=== PATIENT | female | born 1940 | race Caucasian/White ===

== ENCOUNTER → 2016-04-16 | Outpatient (CLI) | payer MEDICARE, BC ==
[~2016-04-16] MED LIST: ASPI1TAB69 PO; ASPI81CH37 CHEW; ATEN25TA PO; CRAN400C PO; CYMB30CA PO; LEVO.075 PO; LIPI40TA PO; LYRI50CA PO; MULT1TAB21 PO; SYSTSOL9 EACH EYE; VITA100064 PO; VITACAP7 PO; ZOLO50TA PO
[2016-04-16 13:28] LABS: AUTOMATED NEUTROPHIL # 2.8 TH/MM3 (1.8-7.7); BASOPHIL % 0.5 % (0.0-2.0); EOSINOPHIL # 0.1 TH/MM3 (0-0.4); EOSINOPHIL % 2.9 % (0.0-4.0); HEMATOCRIT 41.8 % (35.0-46.0); HEMO FLAGS DIFF FINAL; LYMPHOCYTE # 1.3 TH/MM3 (1.0-4.8); MEAN CELL VOLUME 89.7 FL (80.0-100.0); MEAN CORPUSCULAR HEMOGLOBIN 29.4 PG (27.0-34.0); MEAN CORPUSCULAR HGB CONC 32.7 % (32.0-36.0); MONO % 6.7 % (0.0-8.0); NEUT % 60.9 % (16.0-70.0); PLATELET COUNT 189 TH/MM3 (150-450); RED BLOOD COUNT 4.66 MIL/MM3 (4.00-5.30); RED CELL DISTRIBUTION WIDTH 13.6 % (11.6-17.2); WHITE BLOOD COUNT 4.6 TH/MM3 (4.0-11.0)
[2016-04-16 13:51] LABS: ANION GAP 5 MEQ/L (5-15); AST (GOT) 23 U/L (15-37); BLOOD UREA NITROGEN 16 MG/DL (7-18); CHLORIDE 109 MEQ/L (98-107); GLOMERULAR FILTRATION RATE 66 ML/MIN (>89); GLUCOSE,FASTING 91 MG/DL (74-99); POTASSIUM 4.4 MEQ/L (3.5-5.1); SODIUM (NA) 143 MEQ/L (136-145)
[2016-04-16 14:03] LABS: ALKALINE PHOSPHATASE 63 U/L (45-117); ALT (GPT) 27 U/L (10-53); FERRITIN 54 NG/ML (8-252); HDL CHOLESTEROL 78.1 MG/DL (40.0-60.0); LDL CHOLESTEROL 90 MG/DL (0-99); TOTAL BILIRUBIN ADULT 0.6 MG/DL (0.2-1.0)
== END ==
LOC: PLAB 08:24
PROVIDERS: ATTEND Family Medicine
DX: E03.9 Hypothyroidism, unspecified (principal)
CPT/HCPCS: 36415; 80053; 80061; 82728; 84443; 85025

== ENCOUNTER 2016-08-19 11:20 | Day surgery (SDC) | payer MEDICARE, BC ==
[~2016-08-19 11:20] MED LIST changes: -ASPI81CH37 CHEW; -ATEN25TA PO; -CYMB30CA PO; -MULT1TAB21 PO; +PROPOFOL 200 MG/20 ML AMP IV ONE; -VITACAP7 PO
[2016-08-19] MEDS ORDERED: VANCOMYCIN 1000 MG/NS 250 ML IV SCH ×2 (11:45)
[2016-08-19] MEDS ORDERED: POVIDONE IODINE 5% (ANTISEPSIS KIT) 4 APPLICATIONS EACH NARE SCH (11:45)
[2016-08-19] MEDS ORDERED: ceFAZolin 2 GM PREMIX 50 ML IV SCH (11:45)
[2016-08-19] MEDS ORDERED: MUPIROCIN 2% OINT 1 APPLIC/GM SYR NASAL SCH (11:45)
[2016-08-19] MEDS ORDERED: CHLORHEXIDINE GLUCONATE 2 % 1 PACK (2 CLOTHS) TOPICAL SCH (11:45)
[2016-08-19] MEDS ORDERED: VITACAP7 PO (11:49)
[2016-08-19] MEDS ORDERED: CYMB30CA PO (11:49)
[2016-08-19] MEDS ORDERED: MULT1TAB21 PO (11:49)
[2016-08-19] MEDS ORDERED: ASPI81CH37 CHEW (11:49)
[2016-08-19] MEDS ORDERED: ATEN25TA PO (11:49)
[2016-08-19] MEDS ORDERED: SODIUM CHLORID 0.9% 500 ML IV PRN (12:00)
[2016-08-19] MEDS ORDERED: CHLORHEXIDINE GLUCONATE 2 % 1 PACK (2 CLOTHS) TOPICAL PRN (12:00)
[2016-08-19] MEDS ORDERED: LACTATED RINGER'S 1000 ML IV PRN (12:00)
[2016-08-19] MEDS ORDERED: INSULIN HUMAN REGULAR 1,000 UNITS/10 ML VIAL SQ PRN (12:00)
[2016-08-19] MEDS ORDERED: POVIDONE IODINE 5% (ANTISEPSIS KIT) 4 APPLICATIONS EACH NARE PRN (12:00)
[2016-08-19] MEDS ORDERED: METOPROLOL TARTRATE 25 MG TAB PO PRN (12:00)
--- NOTE | 2016-08-19 17:01 | EKG ---
Date Performed: 08/19/2016 Time Performed: 12:02:58 PTAGE: 76 years EKG: Sinus rhythm . Prolonged QT interval Left anterior fascicular block Septal T wave changes are nonspecific Borderli ne ECG PREVIOUS TRACING : 05/01/2015 10.23 No significant change from previous tracing noted. DOCTOR: Eleazar Rodrigues Interpretating Date/Time 08/19/2016 16:58:40
--- NOTE | 2016-08-20 10:40 | CF ---
cc: MAME MARCOS,BETSY Davison M.D. DATE OF 08/19/2016 PROCEDURE PERFORMED Transesophageal echocardiogram INDICATION Embolic stroke. REGISTERED NURSING PROFESSOR Dr. Betsy Mishra CONSENT A full informed consent was obtained prior to the procedure, the risks of , bleeding, perforation, aspiration, foreseen and unforeseen complications were reviewed. The patient fully appears to understand the risks. PROCEDURAL STATEMENT The patient was draped and prepped in the usual manner. Full CECILIA was performed. Anesthesia was given as per the Anesthesia Department. FINDINGS The aortic valve was trileaflet. The left atrial appendage was free of thrombus. The interatrial septum was intact. Bubble studies x2 were carried out with no evidence of [id number] shunting. There was no significant mitral regurgitation or tricuspid regurgitation. LV function was normal. septum was intact. Interatrial septum was intact. There was some mild thickening of the aortic wall, but no obvious significant plaque. CONCLUSIONS Negative CECILIA. Negative bubble studies x2. No obvious embolic source seen. PLAN Proceed with loop recorder placement. Betsy Mishra MD, FRCP,FACC SHWETA/TAYLOR /2:03 PM /10:36 AM MTDMore
--- NOTE | 2016-08-20 10:44 | MP ---
cc: MAME MARCOS M.D., HUMAYUN A. M.D. DATE OF SURGERY: 08/19/2016 PROCEDURE PERFORMED Loop recorder implantation. INDICATION Embolic stroke. PROCEDURAL STATEMENT The patient was draped and prepped in the usual manner. The left fourth intercostal space was anesthetized using lidocaine. Using a scalpel a small incision was made using the Pumodotronic device. A Reveal device was injected under the skin. CONCLUSION Successful placement of Reveal device with excellent pacing and sensing parameters with R-wave of 0.3. PLAN Will plan to discharge the patient later today. Betsy Mishra MD, FRCP,[facility] HAJ/TLL /2:05 PM /10:39 AM
== END 2016-08-19 15:00 | disposition home or self-care (01) ==
LOC: HDOC 11:20 → HDIC 11:20 → HDOC 15:00
PROVIDERS: ATTEND Internal Medicine Cardiovascular Disease
DX: R00.2 Palpitations (principal); I63.9 Cerebral infarction, unspecified; I47.1 Supraventricular tachycardia; I08.1 Rheumatic disorders of both mitral and tricuspid valves; I10 Essential (primary) hypertension; F41.9 Anxiety disorder, unspecified; E78.5 Hyperlipidemia, unspecified; E03.9 Hypothyroidism, unspecified; F32.9 Major depressive disorder, single episode, unspecified; Z79.82 Long term (current) use of aspirin
CPT/HCPCS: 33282; 93005; 93312; 93320; 93325; C1764

== ENCOUNTER → 2016-12-30 | Outpatient (CLI) | payer MEDICARE, BC ==
[~2016-12-30] MED LIST changes: -ASPI1TAB69 PO; +ASPI81CH37 CHEW; +ATEN25TA PO; +CYMB30CA PO; -LIPI40TA PO; -LYRI50CA PO; +MULT1TAB21 PO; -PROPOFOL 200 MG/20 ML AMP IV ONE; -SYSTSOL9 EACH EYE; +VITACAP7 PO; -ZOLO50TA PO
[2016-12-30 13:42] LABS: % SATURATION IRON PROFILE 22.6 % (20-50); IRON (FE) 78 MCG/DL (50-170); TOTAL IRON BINDING CAPACITY 346 MCG/DL (250-450)
[2016-12-30 13:48] LABS: ALBUMIN 3.6 GM/DL (3.4-5.0); ALT (GPT) 33 U/L (10-53); AST (GOT) 29 U/L (15-37); BICARBONATE 29.1 MEQ/L (21.0-32.0); BLOOD UREA NITROGEN 17 MG/DL (7-18); CALCIUM 8.8 MG/DL (8.5-10.1); CHLORIDE 109 MEQ/L (98-107); CHOLESTEROL 178 MG/DL (120-200); CREATININE 0.89 MG/DL (0.50-1.00); GLOMERULAR FILTRATION RATE 62 ML/MIN (>89); GLUCOSE,FASTING 89 MG/DL (74-99); SODIUM (NA) 144 MEQ/L (136-145)
[2016-12-30 13:59] LABS: ALKALINE PHOSPHATASE 61 U/L (45-117); CHOLESTEROL/ HDL RATIO 2.28 RATIO; LDL CHOLESTEROL 80 MG/DL (0-99); LDL CHOLESTEROL DIRECT 90 MG/DL (0-99); TOTAL BILIRUBIN ADULT 0.6 MG/DL (0.2-1.0); TOTAL PROTEIN 6.9 GM/DL (6.4-8.2); TRIGLYCERIDES 99 MG/DL (42-150)
[2016-12-30 16:21] LABS: BACTERIA, URINE RARE /hpf; BILIRUBIN, URINE NEG (NEG); BLOOD, URINE NEG (NEG); GLUCOSE,URINE NEG (NEG); KETONE, URINE NEG (NEG); NITRITE,URINE NEG (NEG); PH, URINE 7.5 (5.0-8.5); TRANSITIONAL EPI CELLS, URINE <1 /hpf; URINE COLOR LIGHT-YELLOW (YELLW/STRAW); URINE LEUKOCYTE ESTERASE SMALL (NEG)
== END ==
LOC: PLAB 08:58
PROVIDERS: ATTEND Family Medicine
DX: D51.0 Vitamin B12 deficiency anemia due to intrinsic factor deficiency (principal); E61.1 Iron deficiency; E78.5 Hyperlipidemia, unspecified; E03.9 Hypothyroidism, unspecified
CPT/HCPCS: 36415; 80053; 80061; 81001; 82607; 83540; 83550; 83721; 84443

== ENCOUNTER → 2017-07-21 | Outpatient (CLI) | payer MEDICARE, BC ==
[~2017-07-21] MED LIST changes: -ASPI81CH37 CHEW; +ASPI81CH6 CHEW; +B-COTAB10 PO; -MULT1TAB21 PO; -VITACAP7 PO
[2017-07-21 14:17] LABS: ALBUMIN 3.8 GM/DL (3.4-5.0); ALT (GPT) 23 U/L (10-53); AST (GOT) 23 U/L (15-37); BICARBONATE 29.3 MEQ/L (21.0-32.0); BLOOD UREA NITROGEN 20 MG/DL (7-18); CALCIUM 8.9 MG/DL (8.5-10.1); CHLORIDE 108 MEQ/L (98-107); CHOLESTEROL 186 MG/DL (120-200); CREATININE 0.78 MG/DL (0.50-1.00); GLOMERULAR FILTRATION RATE 72 ML/MIN (>89); GLUCOSE,FASTING 79 MG/DL (74-99); IRON (FE) 84 MCG/DL (50-170); SODIUM (NA) 144 MEQ/L (136-145); TRIGLYCERIDES 83 MG/DL (42-150)
[2017-07-21 14:42] LABS: % SATURATION IRON PROFILE 22.7 % (20-50); ALKALINE PHOSPHATASE 56 U/L (45-117); HDL CHOLESTEROL 80.6 MG/DL (40.0-60.0); LDL CHOLESTEROL 89 MG/DL (0-99); LDL CHOLESTEROL DIRECT 103 MG/DL (0-99); TOTAL BILIRUBIN ADULT 0.5 MG/DL (0.2-1.0); TOTAL IRON BINDING CAPACITY 370 MCG/DL (250-450); TOTAL PROTEIN 7.2 GM/DL (6.4-8.2)
[2017-07-22 10:50] LABS: BILIRUBIN, URINE NEG (NEG); BLOOD, URINE NEG (NEG); GLUCOSE,URINE NEG (NEG); KETONE, URINE NEG (NEG); MUCUS URINE FEW /lpf (OCC); NITRITE,URINE NEG (NEG); URINE COLOR YELLOW (YELLW/STRAW); URINE LEUKOCYTE ESTERASE NEG (NEG)
== END ==
LOC: PLAB 11:42
PROVIDERS: ATTEND Family Medicine
DX: I10 Essential (primary) hypertension (principal); E78.5 Hyperlipidemia, unspecified; E03.9 Hypothyroidism, unspecified; E53.8 Deficiency of other specified B group vitamins; D64.9 Anemia, unspecified
CPT/HCPCS: 36415; 80053; 80061; 81001; 82607; 83540; 83550; 83721; 84443

== ENCOUNTER 2018-01-09 07:37 | Inpatient (IN) ==
--- NOTE | 2018-01-09 08:16 | ED ---
HPI General Chief Complaint: Fall Stated Complaint: Fall Time Seen by Provider: 01/09/18 07:40 Source: patient Mode of arrival: ambulatory Limitations: no limitations History of Present Illness HPI Narrative: 77-year-old female complains of right upper arm pain and right ankle pain patient fell in the bathroom this morning. Patient denies loss of consciousness. Patient states that she hit the right side of face however no pain in her face now. Patient denies any headache. Patient denies any visual change. Patient denies any neck pain. Patient denies any chest pain or shortness of breath. Patient denies abdominal pain. Patient complained of sharp pain localized to right upper arm. Patient complains of mild pain on the right ankle. Patient denies any focal weakness or numbness of the extremity. Patient has history hypertension, hyperlipidemia. Patient is a non-smoker. Patient has history of cardiac arrhythmia and she is wearing a loop recorder now. complaint: Reports fall Onset (ago): hour(s) Fall from: standing Fall witnessed: yes, by family Place fall occurred: home Loss of consciousness: none Prolonged down time: no Symptoms prior to fall: Reports none Context: Reports tripped/slipped Location of injury: Reports face Location of injury - extremities: Right: arm and ankle Severity: moderate Severity scale (1-10): 6 Quality: Reports sharp Associated symptoms (after fall): Reports denies Related Data Home Medications Medication Instructions Recorded Confirmed aspirin [Aspirin Low Dose] 81 tab PO DAILY 01/09/18 01/09/18 atenolol 50 mg PO DAILY 01/09/18 01/09/18 cholecalciferol (vitamin D3) 2,000 tab PO DAILY 01/09/18 01/09/18 [Vitamin D3] duloxetine 60 tab PO DAILY 01/09/18 01/09/18 levothyroxine [Synthroid] 75 mcg DAILY 01/09/18 01/09/18 vitamin B complex-folic acid 1 tab PO DAILY 01/09/18 01/09/18 [Balanced B-100] Allergies Allergy/AdvReac Type Severity Reaction Status Date / Time No Known Allergies Allergy Unknown Uncoded 01/08/17 13:46 Review of Systems ROS: all other systems reviewed are negative PMFSH History History Provided By: Patient Family History Family History Other Heart disease Social History Social History Substance History: No History of Abuse Second Hand Smoke Exposure: No Smoking Status: Never smoker How Often Do You Have a Drink Containing Alcohol: 2 to 4 times a month Exam Narrative Exam Narrative: GENERAL: Well-nourished, well-developed patient. SKIN: Focused skin assessment warm/dry. HEAD: Normocephalic. No tenderness on palpation of the face. EYES: No scleral icterus. No injection or drainage. NECK: Supple, trachea midline. No JVD or lymphadenopathy. CARDIOVASCULAR: Regular rate and rhythm without murmurs, gallops, or rubs. RESPIRATORY: Breath sounds equal bilaterally. No accessory muscle use. GASTROINTESTINAL: Abdomen soft, non-tender, nondistended. MUSCULOSKELETAL: Patient has moderate tenderness on palpation proximal right humerus. Limited range of motion of right shoulder joint. Sensory motor function distally intact. Patient has mild diffuse tenderness over the right ankle. Full range of motion of the toes. BACK: Nontender without obvious deformity. No CVA tenderness. Neurologic exam normal. Course Initial Documented Vital Signs Temperature 97.5 F L 01/09/18 07:55 Pulse Rate 68 01/09/18 07:55 Respiratory Rate 19 01/09/18 07:55 Blood Pressure 147/68 H 01/09/18 07:55 Pulse Oximetry 98 01/09/18 07:55 Last Documented Vital Signs Temperature 98.3 F 01/10/18 10:47 Pulse Rate 68 01/10/18 11:30 Respiratory Rate 16 01/10/18 11:30 Blood Pressure 107/56 L 01/10/18 11:30 Pulse Oximetry 96 01/10/18 11:30 Medical Decision Making MDM Narrative Medical decision making narrative: 77-year-old female with right upper arm and right ankle injury. Status post fall. Sling and swath applied to right arm. Daley splint right ankle. Patient will be admitted with Ortho consultation. Medical Screen Exam Complete: Yes Emergency Medical Condition: Yes Differential Diagnosis Differential Diagnosis: Differential diagnosis including contusion, sprain, fracture, dislocation. Lab Data Result diagrams: 01/10/18 06:37 01/10/18 06:31 Lab Results 01/09/18 01/09/18 01/09/18 Range/Units 12:05 12:05 12:05 WBC 8.9 (4.0-11.0) th/mm3 RBC 4.42 (4.00-5.30) mil/mm3 Hgb 13.8 (11.6-15.3) gm/dL Hct 41.9 (35.0-46.0) % MCV 94.8 (80.0-100.0) fL MCH 31.3 (27.0-34.0) pg MCHC 33.0 (32.0-36.0) % RDW 12.8 (11.6-17.2) % Plt Count 170 (150-450) th/mm3 MPV 9.2 (7.0-11.0) fL Neut % (Auto) 86.5 H (16.0-70.0) % Lymph % (Auto) 8.0 L (9.0-44.0) % Mower % (Auto) 4.8 (0.0-8.0) % Eos % (Auto) 0.5 (0.0-4.0) % Baso % (Auto) 0.2 (0.0-2.0) % Neut # (Auto) 7.7 (1.8-7.7) th/mm3 Lymph # (Auto) 0.7 L (1.0-4.8) th/mm3 [place] # (Auto) 0.4 (0.0-0.9) th/mm3 Eos # (Auto) 0.0 (0.0-0.4) th/mm3 Baso # (Auto) 0.0 (0.0-0.2) th/mm3 WBC Differential . Differential Comment Auto diff final PT 10.6 (9.8-11.6) sec INR 1.0 Ratio APTT 23.8 (23.4-31.7) sec Sodium 144 (136-145) meq/L Potassium 4.3 (3.5-5.1) meq/L Chloride 110 H (98-107) meq/L Carbon Dioxide 23.8 (21.0-32.0) meq/L Anion Gap 10 (5-15) meq/L BUN 16 (7-18) mg/dL Creatinine 0.72 (0.50-1.00) mg/dL Estimated GFR 79 L (>89) mL/min Random Glucose 88 (74-106) mg/dL Calcium 9.1 (8.5-10.1) mg/dL Total Bilirubin 0.6 (0.2-1.0) mg/dL AST 36 (15-37) U/L ALT 25 (10-53) U/L Alkaline Phosphatase 56 (45-117) U/L Total Protein 7.0 (6.4-8.2) g/dL Albumin 3.6 (3.4-5.0) g/dL 01/10/18 01/10/18 Range/Units 06:31 06:37 WBC 6.9 (4.0-11.0) th/mm3 RBC 4.09 (4.00-5.30) mil/mm3 Hgb 13.0 (11.6-15.3) gm/dL Hct 37.9 (35.0-46.0) % MCV 92.7 (80.0-100.0) fL MCH 31.7 (27.0-34.0) pg MCHC 34.2 (32.0-36.0) % RDW 12.9 (11.6-17.2) % Plt Count 161 (150-450) th/mm3 MPV 9.3 (7.0-11.0) fL Neut % (Auto) 65.8 (16.0-70.0) % Lymph % (Auto) 21.7 (9.0-44.0) % [place] % (Auto) 11.0 H (0.0-8.0) % Eos % (Auto) 1.3 (0.0-4.0) % Baso % (Auto) 0.2 (0.0-2.0) % Neut # (Auto) 4.6 (1.8-7.7) th/mm3 Lymph # (Auto) 1.5 (1.0-4.8) th/mm3 [place]ower # (Auto) 0.8 (0.0-0.9) th/mm3 Eos # (Auto) 0.1 (0.0-0.4) th/mm3 Baso # (Auto) 0.0 (0.0-0.2) th/mm3 WBC Differential . Differential Comment Auto diff final PT (9.8-11.6) sec INR Ratio APTT (23.4-31.7) sec Sodium 144 (136-145) meq/L Potassium 3.7 (3.5-5.1) meq/L Chloride 110 H (98-107) meq/L Carbon Dioxide 26.2 (21.0-32.0) meq/L Anion Gap 8 (5-15) meq/L BUN 13 (7-18) mg/dL Creatinine 0.79 (0.50-1.00) mg/dL Estimated GFR 71 L (>89) mL/min Random Glucose 93 (74-106) mg/dL Calcium 8.5 (8.5-10.1) mg/dL Total Bilirubin 0.6 (0.2-1.0) mg/dL AST 28 (15-37) U/L ALT 24 (10-53) U/L Alkaline Phosphatase 57 (45-117) U/L Total Protein 6.9 (6.4-8.2) g/dL Albumin 3.5 (3.4-5.0) g/dL Imaging Data Attestation: I personally reviewed and interpreted this imaging study as follows : Radiologist's impression: Humerus X-Ray 01/09/18 08:09 CONCLUSION: Proximal humerus fracture. Ankle X-Ray 01/09/18 08:10 CONCLUSION: Distal tibia and fibular fractures. Chest X-Ray 01/09/18 10:59 CONCLUSION: Clear lungs. Comminuted right proximal humerus fracture. Discharge Plan Discharge Disposition Patient Disposition: 30 Still Patient Discharge Details Diagnosis: Fracture of humerus, proximal, right, closed, Fracture of ankle, right, closed Physicians Team ED Provider: Sea Crawford Primary Care Provider: Kam Jacobs Attending Provider: Chad Pittman Discharge Interventions Interventions: ED Discharge Assessment Last Done: 01/09/18 14:05 Status ED Status: Left Department Discharge Information Discharge Date/Time: 01/09/18 14:05
--- NOTE | 2018-01-09 09:36 | XR ---
EXAM DATE: 01/09/2018 9:33 AM EST AGE/SEX: 77 years / Female INDICATIONS: Arm pain. CLINICAL DATA: This is the patient's initial encounter. Patient reports that signs and symptoms have been present for 1 day and indicates a pain score of 10/10. MEDICAL/SURGICAL HISTORY: . Patient fell while walking to the bathroom onto her right side. No ne. COMPARISON: No prior exams available for comparison. FINDINGS: There is a comminuted fracture of the surgical neck humerus and humeral head, mildly displaced. There is a displaced greater tuberosity fragment. The bone density is normal. CONCLUSION: Proximal humerus fracture. Electronically signed by: Osman Hahn MD 01/09/2018 9:35 AM EST
--- NOTE | 2018-01-09 09:44 | XR ---
EXAM DATE: 01/09/2018 9:35 AM EST AGE/SEX: 77 years / Female INDICATIONS: Ankle pain. CLINICAL DATA: This is the patient's initial encounter. Patient reports that signs and symptoms have been present for 1 day and indicates a pain score of 10/10. MEDICAL/SURGICAL HISTORY: . Patient fell while walking to the bathroom onto her right side. No ne. COMPARISON: . FINDINGS: There is a mildly displaced transverse fracture through the medial malleolus as well as a comminuted fracture of the distal fibular metaphysis extending to the ankle mortise. Plantar calcaneal spur. The re is slight widening of the ankle mortise medially. CONCLUSION: Distal tibia and fibular fractures. Electronically signed by: Osman Hahn MD 01/09/2018 9:43 AM EST
--- NOTE | 2018-01-09 11:47 | XR ---
EXAM DATE: 01/09/2018 11:41 AM EST AGE/SEX: 77 years / Female INDICATIONS: Patient fell and broke right ankle and humerus. CLINICAL DATA: This is the patient's initial encounter. Patient reports that signs and symptoms have been present for 1 day and indicates a pain score of 2/10. MEDICAL/SURGICAL HISTORY: None. . loop recorder COMPARISON: POI, XR RIBS, LEFT, 12/25/2014. . FINDINGS: A single AP view of the chest demonstrates the lungs to be symmetrically aerated without evidence of mass, infiltrate or effusion. The cardiomediastinal contours are unremarkable. Osseous structures d emonstrate right proximal humerus fracture and degenerative changes of the spine. CONCLUSION: Clear lungs. Comminuted right proximal humerus fracture. Electronically signed by: Osman Hahn MD 01/09/2018 11:45 AM EST
[2018-01-09] MEDS: Sod Chloride 0.9% Inj 1,000 ML IV.CONT SCH ×2 (12:15→21:13)
[2018-01-09 12:22] LABS: Baso % (Auto) 0.2 % (0.0-2.0); Eos % (Auto) 0.5 % (0.0-4.0); Hematocrit 41.9 % (35.0-46.0); Hemoglobin 13.8 gm/dL (11.6-15.3); Lymph # (Auto) 0.7 th/mm3 (1.0-4.8); Mean Corpuscular Hemoglobin 31.3 pg (27.0-34.0); Mean Corpuscular Volume 94.8 fL (80.0-100.0); Mean Platelet Volume 9.2 fL (7.0-11.0); Mono # (Auto) 0.4 th/mm3 (0.0-0.9); Mono % (Auto) 4.8 % (0.0-8.0); Neut # (Auto) 7.7 th/mm3 (1.8-7.7); Neut % (Auto) 86.5 % (16.0-70.0); Platelet Count 170 th/mm3 (150-450); Red Blood Count 4.42 mil/mm3 (4.00-5.30); Red Cell Distribution Width 12.8 % (11.6-17.2); White Blood Count 8.9 th/mm3 (4.0-11.0)
[2018-01-09 12:31] LABS: Activated Partial Thrombo Time 23.8 sec (23.4-31.7); Prothrombin Time 10.6 sec (9.8-11.6)
[2018-01-09 12:45] LABS: Alanine Aminotransferase 25 U/L (10-53); Albumin 3.6 g/dL (3.4-5.0); Anion Gap 10 meq/L (5-15); Aspartate Aminotransferase 36 U/L (15-37); Blood Urea Nitrogen 16 mg/dL (7-18); Calcium 9.1 mg/dL (8.5-10.1); Carbon Dioxide 23.8 meq/L (21.0-32.0); Chloride 110 meq/L (98-107); Glomerular Filtration Rate 79 mL/min (>89); Glucose,Random 88 mg/dL (74-106); Potassium 4.3 meq/L (3.5-5.1); Sodium 144 meq/L (136-145)
[2018-01-09] MEDS ORDERED: Bisacodyl 10 MG Supp RECTAL PRN (12:45)
[2018-01-09] MEDS ORDERED: Acetaminophen 325 MG Tablet PO PRN ×2 (12:45→12:47)
[2018-01-09 12:47] LABS: Alkaline Phosphatase 56 U/L (45-117)
[2018-01-09] MEDS ORDERED: Naloxone Inj 0.4 MG/ML Vial IV.PUSH PRN (12:47)
--- NOTE | 2018-01-09 13:45 | P.HP ---
History of Present Illness Primary Care Physician: Kam Jacobs MD Chief Complaint: Right shoulder and right lower extremity pain History of Present Illness: 77-year-old female with a past medical history of hypertension, hypothyroidism was brought to the ED from CVICU where she has been spending time with her who is currently hospitalized, for evaluation of right upper and lower extremity pain status post mechanical falls x2. Apparently this morning, patient went to the gas bathroom however she got inside she slipped and fell landing on her right elbow/shoulder and immediately feeling a pop. Patient managed to get up but few instance later she slept and landing on her right ankle and foot. She was unable to get up this time until she was found by some employees of [employer]. Patient denies in both instances loss of consciousness, heart palpitation or dizziness. She denies any presyncopal episode. In the ED , x-rays were obtained which revealed fracture to the right humerus, fracture to distal tibia and fibula. Patient had extensive pain of lower and upper extremity pain. She has a loop recorder in place, since July 2016. Inpatient Certification: I certify that the inpatient services were ordered in accordance with Medicare regulations governing the order. This includes certification that hospital inpatient services are reasonable and necessary and in the case of services not specified as inpatient-only under 42 CFR 419.22(n), that they are appropriately provided as inpatient services in accordance to with the 2-midnight benchmark under 43 CFR 412.3(e) Estimated Total Length of Stay (Days): 2 Plans for Post Hospital Care: SNF Review of Systems All other systems reviewed negative except as stated [facility] - History History Provided By: Patient - Medical History Medical History: Medical History (Last Updated 01/09/18 @ 13:16 by Syl Sunshine) Cardiac arrhythmia High cholesterol Hypothyroid - Surgical History Surgical History: Surgical History (Last Updated 01/09/18 @ 13:16 by Syl Sunshine) History of tonsillectomy - Family History Family History: Family History (Last Updated 01/09/18 @ 13:41 by Ar Blanton MD) Other Heart disease - Tobacco History Smoking Status: Unknown if ever smoked - Alcohol History How Often Do You Have a Drink Containing Alcohol: Monthly or less - Substance Use History Substance History: No History of Abuse - Immunization History Tetanus Immunization: Unsure Medications and Allergies Active Medications: Active Medications Acetaminophen (Tylenol) 650 mg PO Q4H PRN PRN Reason: Temp > 100.4 Acetaminophen (Tylenol) 650 mg PO Q6HR PRN PRN Reason: PAIN SCALE 1 TO 2 Hydrocodone Bitart/Acetaminophen ([place] 5/325) 1 tab PO Q4H PRN PRN Reason: PAIN SCALE 3 TO 5 Al Hydroxide/Mg Hydroxide (Milk Of Magnesia Liq) 30 ml PO Q12H PRN PRN Reason: Mild Constipation Atenolol (Tenormin) 50 mg PO DAILY EMILY Bisacodyl (Dulcolax Supp) 10 mg RECTAL DAILY PRN PRN Reason: SEVERE CONSITIPATION Enalaprilat (Vasotec Inj) 2.5 mg IV.PUSH Q6H PRN PRN Reason: SBP>160, DBP>90 Sodium Chloride (Ns Inj) 1,000 mls @ 100 mls/hr IV.CONT .Q10H [facility] Last Admin: 01/09/18 12:15 Dose: 100 mls/hr Lactulose (Lactulose Liq) 30 ml PO DAILY PRN PRN Reason: SEVERE CONSITIPATION Levothyroxine Sodium (Synthroid) 75 mcg PO DAILY@0600 EMILY Naloxone HCl (Narcan Inj) 0.4 mg IV.PUSH UNSCH PRN PRN Reason: SEE LABEL COMMENTS Ondansetron HCl (Zofran Inj) 4 mg IV.PUSH Q6H PRN PRN Reason: NAUSEA OR VOMITING Senna/Docusate Sodium (Dariana-Colace) 1 tab PO BID [facility] Sennosides (Senokot) 17.2 mg PO Q12H PRN PRN Reason: Moderate Constipation Allergies Allergy/AdvReac Type Severity Reaction Status Date / Time No Known Allergies Allergy Unknown Uncoded 01/08/17 13:46 Home Medications Medication Instructions Recorded Confirmed Type atenolol 50 mg PO DAILY 01/09/18 01/09/18 History levothyroxine [Synthroid] 75 mcg DAILY 01/09/18 01/09/18 History Exam Vital signs: Vital Signs 01/09/18 07:55 01/09/18 10:50 01/09/18 12:45 Temperature 97.5 F L Pulse Rate 68 54 L 58 L Respiratory Rate 19 18 18 Blood Pressure 147/68 H 144/65 H 144/68 H Pulse Oximetry 98 98 98 Intake & Output 01/08/18 01/09/18 01/09/18 18:59 06:59 18:59 Weight 78 kg Narrative: GENERAL: NAD SKIN: Warm and dry. HEAD: Atraumatic. Normocephalic. EYES: Pupils equal and round. No scleral icterus. No injection or drainage. ENT: No nasal bleeding or discharge. Mucous membranes pink and moist. NECK: Trachea midline. No JVD. CARDIOVASCULAR: Regular rate and rhythm. RESPIRATORY: No accessory muscle use. Clear to auscultation. Breath sounds equal bilaterally. GASTROINTESTINAL: Abdomen soft, non-tender, nondistended. Hepatic and splenic margins not palpable. MUSCULOSKELETAL: Extremities without clubbing, cyanosis, or edema. No obvious deformities. limited ROM RUE and RLL. RUE in sling. RLE in dressing NEUROLOGICAL: Awake and alert. No obvious cranial nerve deficits. Motor grossly within normal limits. Five out of 5 muscle strength in the arms and legs. Normal speech. PSYCHIATRIC: Appropriate mood and affect; insight and judgment normal. Results - Labs CBC & Chem 7: 01/09/18 12:05 01/09/18 12:05 Labs: Laboratory Results - last 24 hr 01/09/18 01/09/18 01/09/18 12:05 12:05 12:05 WBC 8.9 RBC 4.42 Hgb 13.8 Hct 41.9 MCV 94.8 MCH 31.3 MCHC 33.0 RDW 12.8 Plt Count 170 MPV 9.2 Neut % (Auto) 86.5 H Lymph % (Auto) 8.0 L [place] % (Auto) 4.8 Eos % (Auto) 0.5 Baso % (Auto) 0.2 Neut # (Auto) 7.7 Lymph # (Auto) 0.7 L [place] # (Auto) 0.4 Eos # (Auto) 0.0 Baso # (Auto) 0.0 WBC Differential . Differential Comment Auto diff final PT 10.6 INR 1.0 APTT 23.8 Sodium 144 Potassium 4.3 Chloride 110 H Carbon Dioxide 23.8 Anion Gap 10 BUN 16 Creatinine 0.72 Estimated GFR 79 L Random Glucose 88 Calcium 9.1 Total Bilirubin 0.6 AST 36 ALT 25 Alkaline Phosphatase 56 Total Protein 7.0 Albumin 3.6 - Imaging Impressions Humerus X-Ray 01/09/18 08:09 CONCLUSION: Proximal humerus fracture. Ankle X-Ray 01/09/18 08:10 CONCLUSION: Distal tibia and fibular fractures. Chest X-Ray 01/09/18 10:59 CONCLUSION: Clear lungs. Comminuted right proximal humerus fracture. Caprini VTE Risk Assessment Caprini VTE Risk Assessment: Moderate/High Risk (score >= 2) Caprini Risk Assessment Model: Point Value = 1 Point Value = 2 Point Value = 3 Point Value = 5 Age 41-60 Minor surgery BMI > 25 kg/m2 Swollen legs Varicose veins or History of unexplained or recurrent spontaneous Oral contraceptives or hormone replacement Sepsis (< 1 month) Serious lung disease, including pneumonia (< 1 month) Abnormal pulmonary function Acute myocardial infarction Congestive heart failure (< 1 month) History of inflammatory bowel disease Medical patient at bed rest Age 61-74 Arthroscopic surgery Major open surgery (> 45 min) Laparoscopic surgery (> 45 min) Malignancy Confined to bed (> 72 hours) Immobilizing plaster cast Central venous access Age >= 75 History of VTE Family history of VTE Factor V Leiden Prothrombin [id number] Lupus anticoagulant Anticardiolipin antibodies Elevated serum homocysteine Heparin-induced thrombocytopenia Other congenital or acquired thrombophilia Stroke (< 1 month) Elective arthroplasty Hip, pelvis, or leg fracture Acute spinal cord injury (< 1 month) Prophylaxis Regimen: Total Risk Factor Score Risk Level Prophylaxis Regimen 0-1 Low Early ambulation 2 Moderate Order ONE of the following: *Sequential Compression Device (SCD) *Heparin 5000 units SQ BID 3-4 Higher Order ONE of the following medications: *Heparin 5000 units SQ TID *Enoxaparin/Lovenox 40 mg SQ daily (WT < 150 kg, CrCl > 30 mL/min) *Enoxaparin/Lovenox 30 mg SQ daily (WT < 150 kg, CrCl > 10-29 mL/min) *Enoxaparin/Lovenox 30 mg SQ BID (WT < 150 kg, CrCl > 30 mL/min) AND/OR *Sequential Compression Device (SCD) 5 or more Highest Order ONE of the following medications: *Heparin 5000 units SQ TID (Preferred with Epidurals) *Enoxaparin/Lovenox 40 mg SQ daily (WT < 150 kg, CrCl > 30 mL/min) *Enoxaparin/Lovenox 30 mg SQ daily (WT < 150 kg, CrCl > 10-29 mL/min) *Enoxaparin/Lovenox 30 mg SQ BID (WT < 150 kg, CrCl > 30 mL/min) AND *Sequential Compression Device (SCD) Assessment and Plan - Plan 77-year-old female with Proximal right humerus fracture Distal tibia and fibular fractures Imaging study reviewed and noted by me with the above findings Orthopedic surgery consultation for evaluation for possible repair PT consultation pending Case management consultation for evaluation for placement to SNF History of hypothyroidism, hypertension Resume outpatient medication History of cardiac arrhythmias She has a loop recorder in place Cardiology consultation as needed
--- NOTE | 2018-01-09 14:16 | ECG ---
Date Performed: 01/09/2018 Time Performed: 12:12:43 PTAGE: 77 years EKG: Sinus rhythm RIGHT BUNDLE BRANCH BLOCK LEFT ANTERIOR FASCICULAR BLOCK Nonspecific T wave changes ABNORMAL ECG Com pared to prior electrocardiogram, Right bundle branch block and nonspecific T-wave changes are now pr esent. PREVIOUS TRACING : 08/19/2016 12.02 DOCTOR: João Wiley Interpretating Date/Time 01/09/2018 14:16:27
--- NOTE | 2018-01-09 17:00 | P.CONOP ---
[facility] Orthopedics Consult Note - [facility] Consult date: 01/09/18 Consult reason: fracture Chief complaint: Fracture right humerus, fracture right ankle Narrative: 77-year-old female with a past medical history of hypertension, hypothyroidism was brought to the ED from CVICU where she has been spending time with her who is currently hospitalized, for evaluation of right upper and lower extremity pain status post mechanical falls x2. Apparently this morning, patient went to the guest bathroom however she got inside and she slipped and fell landing on her right elbow/shoulder and immediately feeling a pop. Patient managed to get up but few seconds later she slipped and landed on her right ankle and foot. She was unable to get up this time until she was found by some employees of [employer]. Patient denies in both instances loss of consciousness, heart palpitation or dizziness. She denies any presyncopal episode. In the ED, x-rays were obtained which revealed fracture to the right humerus, and right ankle fracture. Patient had extensive pain of lower and upper extremity pain. She has a loop recorder in place, since July 2016. Review of Systems Denies fevers, chills, nausea, vomiting. Denies chest pain, cough, shortness of breath. Denies abdominal pain, change in urination. Denies back pain, weakness, numbness or tingling. Denies dizziness or blurry vision. Reports right shoulder and ankle pain. [facility] - History History Provided By: Patient - Medical History Medical History: Medical History (Last Updated 01/09/18 @ 13:16 by Syl Sunshine) Cardiac arrhythmia High cholesterol Hypothyroid - Surgical History Surgical History: Surgical History (Last Updated 01/09/18 @ 13:16 by Syl Sunshine) History of tonsillectomy - Family History Family History: Family History (Last Updated 01/09/18 @ 13:41 by Ar Blanton MD) Other Heart disease - Tobacco History Second Hand Smoke Exposure: No Tobacco Use In Past 30 Days: No Smoking Status: Never smoker - Alcohol History How Often Do You Have a Drink Containing Alcohol: 2 to 4 times a month - Substance Use History Substance History: No History of Abuse - Immunization History Tetanus Immunization: <5 Years Hx Influenza Vaccine This Season: No Medications and Allergies Active Medications: Active Medications Acetaminophen (Tylenol) 650 mg PO Q4H PRN PRN Reason: Temp > 100.4 Acetaminophen (Tylenol) 650 mg PO Q6HR PRN PRN Reason: PAIN SCALE 1 TO 2 Hydrocodone Bitart/Acetaminophen ([place] 5/325) 1 tab PO Q4H PRN PRN Reason: PAIN SCALE 3 TO 5 Al Hydroxide/Mg Hydroxide (Milk Of Magnesia Liq) 30 ml PO Q12H PRN PRN Reason: Mild Constipation Atenolol (Tenormin) 50 mg PO DAILY [facility]ILY Bisacodyl (Dulcolax Supp) 10 mg RECTAL DAILY PRN PRN Reason: SEVERE CONSITIPATION Enalaprilat (Vasotec Inj) 2.5 mg IV.PUSH Q6H PRN PRN Reason: SBP>160, DBP>90 Sodium Chloride (Ns Inj) 1,000 mls @ 100 mls/hr IV.CONT .Q10H [facility] Last Admin: 01/09/18 12:15 Dose: 100 mls/hr Lactulose (Lactulose Liq) 30 ml PO DAILY PRN PRN Reason: SEVERE CONSITIPATION Levothyroxine Sodium (Synthroid) 75 mcg PO DAILY@0600 [facility] Naloxone HCl (Narcan Inj) 0.4 mg IV.PUSH UNSCH PRN PRN Reason: SEE LABEL COMMENTS Ondansetron HCl (Zofran Inj) 4 mg IV.PUSH Q6H PRN PRN Reason: NAUSEA OR VOMITING Senna/Docusate Sodium (Dariana-Colace) 1 tab PO BID [facility] Sennosides (Senokot) 17.2 mg PO Q12H PRN PRN Reason: Moderate Constipation Allergies Allergy/AdvReac Type Severity Reaction Status Date / Time No Known Allergies Allergy Unknown Uncoded 01/08/17 13:46 Home Medications Medication Instructions Recorded Confirmed Type aspirin [Aspirin Low Dose] 81 tab PO DAILY 01/09/18 01/09/18 History atenolol 50 mg PO DAILY 01/09/18 01/09/18 History cholecalciferol (vitamin D3) 2,000 tab PO DAILY 01/09/18 01/09/18 History [Vitamin D3] duloxetine 60 tab PO DAILY 01/09/18 01/09/18 History levothyroxine [Synthroid] 75 mcg DAILY 01/09/18 01/09/18 History vitamin B complex-folic acid 1 tab PO DAILY 01/09/18 01/09/18 History [Balanced B-100] Exam Vital signs: Vital Signs 01/09/18 07:55 01/09/18 10:50 01/09/18 12:45 Temperature 97.5 F L Pulse Rate 68 54 L 58 L Respiratory Rate 19 18 18 Blood Pressure 147/68 H 144/65 H 144/68 H Pulse Oximetry 98 98 98 01/09/18 14:02 Temperature 97.1 F L Pulse Rate 83 Respiratory Rate 19 Blood Pressure 189/74 H Pulse Oximetry 100 Intake & Output 01/08/18 01/09/18 01/09/18 18:59 06:59 18:59 Weight 74.843 kg Other: Weight On Admission 75.189 kg Narrative: Awake, alert, no acute distress Normocephalic Pupils equal No JVD Moist mucous membranes Soft nontender abdomen Regular rate Nonlabored respirations Right upper extremity: Sling in place. Moderate edema and tenderness palpation over proximal humerus. Unable to assess shoulder range of motion due to pain. Patient appears neurovascularly intact distally and radial pulses palpable. Right lower extremity: Splint in place over ankle. Patient damages positive EHL and FHL. Sensation appears grossly intact distally. Brisk cap refill. No tenderness palpation of visible deformities at the knee or hip. Left upper extremity and lower extremity: No visible deformities or tenderness palpation. Full active range of motion and strength throughout. Sensation intact. Brisk cap refill. No rash Normal affect Results - Labs Result Diagrams: 01/09/18 12:05 01/09/18 12:05 Labs: Laboratory Results - last 24 hr 01/09/18 01/09/18 01/09/18 12:05 12:05 12:05 WBC 8.9 RBC 4.42 Hgb 13.8 Hct 41.9 MCV 94.8 MCH 31.3 MCHC 33.0 RDW 12.8 Plt Count 170 MPV 9.2 Neut % (Auto) 86.5 H Lymph % (Auto) 8.0 L [place] % (Auto) 4.8 Eos % (Auto) 0.5 Baso % (Auto) 0.2 Neut # (Auto) 7.7 Lymph # (Auto) 0.7 L [place] # (Auto) 0.4 Eos # (Auto) 0.0 Baso # (Auto) 0.0 WBC Differential . Differential Comment Auto diff final PT 10.6 INR 1.0 APTT 23.8 Sodium 144 Potassium 4.3 Chloride 110 H Carbon Dioxide 23.8 Anion Gap 10 BUN 16 Creatinine 0.72 Estimated GFR 79 L Random Glucose 88 Calcium 9.1 Total Bilirubin 0.6 AST 36 ALT 25 Alkaline Phosphatase 56 Total Protein 7.0 Albumin 3.6 - Diagnostic results Imaging: Impressions Humerus X-Ray 01/09/18 08:09 CONCLUSION: Proximal humerus fracture. Ankle X-Ray 01/09/18 08:10 CONCLUSION: Distal tibia and fibular fractures. Chest X-Ray 01/09/18 10:59 CONCLUSION: Clear lungs. Comminuted right proximal humerus fracture. Assessment and Plan - Assessment and Plan 77yo F s/p 2 mechanical trip and falls with closed minimally displaced right proximal humerus fracture and closed displaced right bimalleolar ankle fracture Radiographs reviewed by myself. Given her displaced right ankle fracture, I would recommend operative intervention in the form of open reduction internal fixation of her right ankle. Risks of surgery including but not limited to: infection, nonunion or malunion, hardware malposition or failure, persistent ankle pain and/or stiffness, neurovascular injury, possible need for further surgery, and other unforeseen complications. Patient will be made NPO at midnight with plan for surgery. Patient does also have closed minimally displaced right proximal humerus fracture. With the fracture pattern and minimal displacment, I would recommend at least initial attempt at conservative management for her shoulder fracture. Should her fracture displace, she may require operative intervention. Patient should be placed in sling and remain NWB RUE.
[2018-01-09] MEDS: Senna/Docusate Sodium 8.6/50 MG Tablet PO SCH (21:11)
[2018-01-09] MEDS ORDERED: Metoprolol Tartrate 25 MG Tablet PO PRN (21:45)
[2018-01-09] MEDS ORDERED: Chlorhexidine Gluconate 2% 1 Pack (2 Cloths) TOPICAL ONE (21:45)
[2018-01-09] MEDS ORDERED: Sodium Chlor 0.9% Inj 500 ML IV.SIG SCH (22:00)
[2018-01-10] MEDS: Levothyroxine 75 MCG Tablet PO SCH (06:19)
[2018-01-10 07:01] LABS: Baso % (Auto) 0.2 % (0.0-2.0); Eos # (Auto) 0.1 th/mm3 (0.0-0.4); Eos % (Auto) 1.3 % (0.0-4.0); Hematocrit 37.9 % (35.0-46.0); Lymph # (Auto) 1.5 th/mm3 (1.0-4.8); Lymph % (Auto) 21.7 % (9.0-44.0); Mean Corpuscular HGB Conc 34.2 % (32.0-36.0); Mean Corpuscular Hemoglobin 31.7 pg (27.0-34.0); Mean Corpuscular Volume 92.7 fL (80.0-100.0); Mean Platelet Volume 9.3 fL (7.0-11.0); Mono # (Auto) 0.8 th/mm3 (0.0-0.9); Neut # (Auto) 4.6 th/mm3 (1.8-7.7); Neut % (Auto) 65.8 % (16.0-70.0); Platelet Count 161 th/mm3 (150-450); Red Blood Count 4.09 mil/mm3 (4.00-5.30); Red Cell Distribution Width 12.9 % (11.6-17.2); White Blood Count 6.9 th/mm3 (4.0-11.0)
[2018-01-10 07:32] LABS: Alanine Aminotransferase 24 U/L (10-53); Albumin 3.5 g/dL (3.4-5.0); Anion Gap 8 meq/L (5-15); Aspartate Aminotransferase 28 U/L (15-37); Blood Urea Nitrogen 13 mg/dL (7-18); Calcium 8.5 mg/dL (8.5-10.1); Carbon Dioxide 26.2 meq/L (21.0-32.0); Chloride 110 meq/L (98-107); Glomerular Filtration Rate 71 mL/min (>89); Glucose,Random 93 mg/dL (74-106); Potassium 3.7 meq/L (3.5-5.1); Sodium 144 meq/L (136-145)
[2018-01-10 07:34] LABS: Alkaline Phosphatase 57 U/L (45-117); Total Protein 6.9 g/dL (6.4-8.2)
[2018-01-10] MEDS ORDERED: ceFAZolin 1 GM Premix Inj 0 GM/0 ML FROZ.PIGGY IV.SIG ONE (08:25)
[2018-01-10] MEDS: Atenolol 50 MG Tablet PO SCH (09:00)
[2018-01-10] MEDS ORDERED: Lidocaine PF 1% Inj 5 ML Syringe OTHER ONE (09:08)
[2018-01-10] MEDS ORDERED: ceFAZolin 2 GM Premix Inj 2 GM/50 ML PIGGYBACK IV.SIG ONE (09:11)
--- NOTE | 2018-01-10 10:31 | P.OP ---
Date of procedure: 01/10/18 Procedure: 1. Open reduction internal fixation of right bimalleolar ankle fracture Implants: Synthes Anesthesia: GETA Surgeon: Lilli Catalan MD Air Brush Operator: Lowell Puentes Estimated blood loss (mL): 25 Pathology: none sent Operation and Findings: Implants: Indications for procedure: 77-year-old female who had multiple falls and sustained a closed right proximal humerus fracture and a closed right displaced bimalleolar ankle fracture. Recommendation for nonoperative management of the minimally displaced closed right proximal humerus fracture. However, given her displaced right bimalleolar ankle fracture, I recommended operative intervention in the form of open reduction internal fixation of her right ankle. Options of management were discussed with the patient. Risks, benefits , alternatives were discussed. At this time she is consented to the above- mentioned procedure. Air Brush Operator: Lowell Puentes PA-C The surgical procedure was assisted by physician assistant sales director. My P.A. presence was necessary throughout this case for the manipulation and positioning of the surgical extremity. My P.A. was assisting me throughout the duration of this procedure. The skill set of a physician assistant sales director was medically necessary to complete this procedure. During the surgical case the microbiological lab technician was working at the back table and the physician assistant sales director was directly assisting me. Description of procedure: Patient was brought back to the operating room and placed supine on operating table with all bony promises well-padded. General anesthesia then ensued. A tourniquet was placed on the patient's right thigh and patient's right leg was prepped and draped in standard sterile fashion. Preoperative antibiotics were given within 1 hour of incision. A timeout was performed to down by the correct patient, side, site and procedure to be performed. The leg was exsanguinated and tourniquet inflated to 250 mmHg. A lateral incision was made over the distal aspect of the fibula with sharp dissection through the skin and subcutaneous tissue. The fracture site was exposed and cleaned and reduced under direct visualization and verified on AP and lateral radiographs. The fracture was held reduced with a bone clamp and a lag screw was then placed. A distal fibula locking plate was then affixed to the distal fibula. Again, the fracture was well reduced and the fibula was out to length. Nonlocking cortical screws were initially placed both proximally and distally followed by distal locking screws and proximal nonlocking screws. I then turned my attention to the medial malleolus fracture. After the fibula was reduced, the medial malleolus fracture was found to be in anatomic alignment. 2 percutaneous cannulated screws were then placed. Initially, 2 K wires for 4.0 mm cannulated screws were placed from distally to proximally past the fracture site and into the distal tibia. These were subsequently measured, the near cortex drilled and appropriate length cannulated screws placed over these guidewires. The medial malleolus fracture was found to be well reduced at the joint surface and hardware appropriately positioned. At this time, and external rotation stress test was then performed which demonstrated no evidence of syndesmotic widening or medial clear space widening. At this time the joint appeared appropriately reduced and hardware in good position. All wounds were thoroughly irrigated with normal saline laden with gentamicin. The deep tissue was closed with Vicryl sutures and the skin closed with nylon. Local anesthetic of half percent Marcaine with epinephrine was utilized. Sterile dressings were then applied along with a short leg splint. The tourniquet was released. Patient was awoken from general anesthesia without comp occasion. Disposition: Nonweightbearing right lower extremity in splint.
[2018-01-10] MEDS ORDERED: Post-op Orders (for Pharmacy) OTHER STA (10:32)
[2018-01-10] MEDS ORDERED: fentaNYL Citrate Inj 100 MCG/2 ML Ampul ONE (10:53)
[2018-01-10] MEDS ORDERED: *morphine SULFATE 10 MG/ML PERIprocedure ONLY ONE (10:54)
--- NOTE | 2018-01-10 13:17 | P.PNIM ---
Subjective Interval history: Patient seen and examined. She is status post open reduction internal fixation of her tibia fibular fracture. She reports that the surgery went well and her pain right now is tolerable. She also has a minimally displaced proximal humerus fracture currently attempting nonsurgical management at this time. Patient reports that she is tolerating the pain in that arm as well. She denies any chest pain shortness of breath. She reports that she ate her lunch today without any difficulty. She is unaware if she is passing gas as of yet. Physical Exam Vital signs: Vital Signs 01/09/18 14:02 01/09/18 16:00 01/09/18 20:00 Temperature 97.1 F L 98.7 F 99.3 F Pulse Rate 83 92 H 105 H Respiratory Rate 19 19 18 Blood Pressure 189/74 H 131/64 134/69 Pulse Oximetry 100 99 95 01/10/18 00:00 01/10/18 04:00 01/10/18 08:00 Temperature 99 F 98.3 F 98.8 F Pulse Rate 92 H 79 69 Respiratory Rate 18 18 16 Blood Pressure 120/58 L 134/62 154/71 H Pulse Oximetry 96 99 99 01/10/18 10:47 01/10/18 11:00 01/10/18 11:15 Temperature 98.3 F Pulse Rate 80 70 70 Respiratory Rate 16 16 16 Blood Pressure 146/96 H 115/53 L 109/55 L Pulse Oximetry 100 96 96 01/10/18 11:30 Temperature Pulse Rate 68 Respiratory Rate 16 Blood Pressure 107/56 L Pulse Oximetry 96 Intake & Output 01/09/18 01/10/18 01/10/18 18:59 06:59 18:59 Intake Total 1000 / 1000 950 / 950 Output Total 500 / 500 30 / 30 Balance -500 / -500 1000 / 1000 920 / 920 Weight 74.843 kg 83 kg Intake: IV 1000 / 1000 50 / 50 NS Inj 1,000 ML @ 100 mls/hr IV 1000 / 1000 .CONT .Q10H [facility] Rx#:[id number] Ancef 2 GM Premix Inj 2 gm In 50 / 50 50 ml @ 0 mls/hr IV.SIG .STK- [facility] Rx#:[id number] Anesthesia Amount 900 / 900 Output: Urine 500 / 500 Estimated Blood Loss 30 / 30 Other: # Voids 1 2 Date of Last Bowel Movement 01/09/18 Weight On Admission 75.189 kg Narrative: GEN: Well-developed, well-nourished elderly female patient. No acute distress. CV: Regular rate and rhythm without obvious murmurs LUNGS: Clear to auscultation bilaterally. Normal respiratory effort. No wheezes , rales, rhonchi. GI: Soft, nontender, nondistended. No palpable masses. Bowel sounds WNL. EXT: No edema. Right arm and sling, right leg in orthotic status post procedure NEURO/PSYCH: Afocal. Awake, alert, and oriented x3. Appropriate insight and judgment. Results - Labs CBC & Chem 7: 01/10/18 06:37 01/10/18 06:31 Laboratory Results - last 24 hr 01/10/18 01/10/18 06:31 06:37 WBC 6.9 RBC 4.09 Hgb 13.0 Hct 37.9 MCV 92.7 MCH 31.7 MCHC 34.2 RDW 12.9 Plt Count 161 MPV 9.3 Neut % (Auto) 65.8 Lymph % (Auto) 21.7 [place] % (Auto) 11.0 H Eos % (Auto) 1.3 Baso % (Auto) 0.2 Neut # (Auto) 4.6 Lymph # (Auto) 1.5 [place] # (Auto) 0.8 Eos # (Auto) 0.1 Baso # (Auto) 0.0 WBC Differential . Differential Comment Auto diff final Sodium 144 Potassium 3.7 Chloride 110 H Carbon Dioxide 26.2 Anion Gap 8 BUN 13 Creatinine 0.79 Estimated GFR 71 L Random Glucose 93 Calcium 8.5 Total Bilirubin 0.6 AST 28 ALT 24 Alkaline Phosphatase 57 Total Protein 6.9 Albumin 3.5 - Imaging Humerus X-Ray 01/09/18 08:09 CONCLUSION: Proximal humerus fracture. Ankle X-Ray 01/09/18 08:10 CONCLUSION: Distal tibia and fibular fractures. Chest X-Ray 01/09/18 10:59 CONCLUSION: Clear lungs. Comminuted right proximal humerus fracture. - Procedures Open reduction internal fixation of right tibia-fibula on 01/10/18 Assessment and Plan - Assessment (1) Fracture of humerus, proximal, right, closed Code(s): S42.201A - Unspecified fracture of upper end of right humerus, initial encounter for closed fracture Status: Acute (2) Fracture of ankle, right, closed Code(s): S82.891A - Other fracture of right lower leg, initial encounter for closed fracture Status: Acute - Plan 77-year-old female with a past medical history of hypertension, hypothyroidism admitted for a humerus and tib-fib fracture on the right side 1. proximal right humerus fracture -Attempting conservative management at this time -Placed in a sling and nonweightbearing 2. Distal tibia and fibula fracture on the right side -Status post open reduction internal fixation. -Orthopedics consulted, recognitions appreciated 3. Hypothyroidism -Continue patient's home Synthroid Code Status: Full code Discharge Planning: Pending clearance from orthopedics and physical therapy (1) Fracture of humerus, proximal, right, closed Qualifiers: Encounter type: initial encounter Fracture morphology: unspecified fracture morphology Qualified Code(s): S42.201A - Unspecified fracture of upper end of right humerus, initial encounter for closed fracture (2) Fracture of ankle, right, closed Qualifiers: Encounter type: initial encounter Qualified Code(s): S82.891A - Other fracture of right lower leg, initial encounter for closed fracture
[2018-01-10] MEDS: Senna/Docusate Sodium 8.6/50 MG Tablet PO SCH ×2 (15:00→21:17)
--- NOTE | 2018-01-10 15:04 | XR ---
EXAM DATE: 01/10/2018 2:59 PM EST AGE/SEX: 77 years / Female INDICATIONS: ORIF right ankle. CLINICAL DATA: This is the patient's initial encounter. Patient reports that signs and symptoms have been present for 1 day and indicates a pain score of Nonresponsive. MEDICAL/SURGICAL HISTORY: Non-responsive. Non-responsive. [place] [facility] [place] 3[place]/09/2018. . FINDINGS: There is fixation of the lateral malleolus and lack screw fixation of the medial malleolus. Normal al ignment across the ankle joint. CONCLUSION: Bimalleolar fixation as above. Electronically signed by: Beny Lindquist MD 01/10/2018 3:02 PM EST
[2018-01-10] MEDS: ceFAZolin 1 GM Premix Inj 1 GM/50 ML FROZ.PIGGY IV.SIG SCH (16:45)
--- NOTE | 2018-01-10 16:45 | CT ---
EXAM DATE: 01/10/2018 4:28 PM EST AGE/SEX: 77 years / Female INDICATIONS: Dizziness. CLINICAL DATA: This is the patient's initial encounter. Patient reports that signs and symptoms have been present for 1 day and indicates a pain score of 0/10. MEDICAL/SURGICAL HISTORY: Hypothyroidism. Tonsillectomy. RADIATION DOSE: 56.35 CTDI (mGy) COMPARISON: No prior exams available for comparison. TECHNIQUE: CT of the head without contrast. Using automated exposure control and adjustment of the mA and/or kV according to patient size, radiation dose was kept as low as reasonably achievable to ob tain optimal diagnostic quality images. DICOM format image data is available electronically for revi ew and comparison. FINDINGS: Cerebrum: The ventricles are normal for age. No evidence of midline shift, mass lesion, hemorrhage or acute infarction. No extraaxial fluid collections are seen. Posterior Fossa: The cerebellum and brainstem are intact. The 4th ventricle is midline. The cerebe llopontine angle is unremarkable. Extracranial: The visualized portion of the orbits is intact. Skull: The calvaria is intact. No evidence of skull fracture. CONCLUSION: 1. Negative CT Head non contrast. . Electronically signed by: Beny Lindquist MD 01/10/2018 4:44 PM EST
[2018-01-10] MEDS: Sod Chloride 0.9% Inj 1,000 ML IV.CONT SCH ×2 (18:02→19:24)
[2018-01-11] MEDS: ceFAZolin 1 GM Premix Inj 1 GM/50 ML FROZ.PIGGY IV.SIG SCH ×2 (01:26→08:23)
[2018-01-11] MEDS: Sod Chloride 0.9% Inj 1,000 ML IV.CONT SCH ×2 (03:00→16:09)
[2018-01-11] MEDS: Levothyroxine 75 MCG Tablet PO SCH (06:38)
--- NOTE | 2018-01-11 06:51 | P.PNOP ---
Subjective Interval history: Patient resting comfortably. States her pain is relatively well controlled Physical Exam Vital signs: Vital Signs 01/10/18 08:00 01/10/18 10:47 01/10/18 11:00 Temperature 98.8 F 98.3 F Pulse Rate 69 80 70 Respiratory Rate 16 16 16 Blood Pressure 154/71 H 146/96 H 115/53 L Pulse Oximetry 99 100 96 01/10/18 11:15 01/10/18 11:30 01/10/18 12:00 Temperature 99.7 F H Pulse Rate 70 68 73 Respiratory Rate 16 16 16 Blood Pressure 109/55 L 107/56 L 133/63 Pulse Oximetry 96 96 99 01/10/18 16:00 01/10/18 20:00 01/11/18 00:00 Temperature 98.6 F 100.3 F H 98.3 F Pulse Rate 85 90 88 Respiratory Rate 18 18 18 Blood Pressure 138/60 143/63 H 118/58 L Pulse Oximetry 98 98 97 01/11/18 04:00 Temperature 97.1 F L Pulse Rate 79 Respiratory Rate 18 Blood Pressure 129/59 L Pulse Oximetry 97 Intake & Output 01/10/18 01/10/18 01/11/18 06:59 18:59 06:59 Intake Total 1000 / 1000 2240 / 2240 2290 / 2290 Output Total 330 / 330 Balance 1000 / 1000 1910 / 1910 2290 / 2290 Weight 83 kg 79.5 kg Intake: IV 1000 / 1000 1100 / 1100 2049 / 2049 NS Inj 1,000 ML @ 100 mls/hr IV 1000 / 1000 1000 / 1000 1999 / 1999 .CONT .Q10H [facility] Rx#:[id number] Ancef 1 GM Premix Inj 1 gm In 50 / 50 50 / 50 50 ml @ 100 mls/hr IV.SIG Q8H [facility] Rx#:[id number] Ancef 2 GM Premix Inj 2 gm In 50 / 50 50 ml @ 0 mls/hr IV.SIG .STK- [facility] Rx#:[id number] Oral 240 / 240 240 / 240 Anesthesia Amount 900 / 900 Output: Urine 300 / 300 Estimated Blood Loss 30 / 30 Other: # Voids 2 2 Date of Last Bowel Movement 01/09/18 01/09/18 Narrative: Awake, alert, no acute distress Right upper extremity: Sling in place. Patient does still have significant tenderness and swelling about the proximal humerus. Neurovascularly intact distally. Brisk cap refill. Right lower extremity: Splint in place. Patient does demonstrate positive EHL and FHL. Sensation appears intact distally. Brisk cap refill. Results - Labs CBC & Chem 7: 01/10/18 06:37 01/10/18 06:31 Laboratory Results - last 24 hr 01/10/18 01/10/18 06:31 06:37 WBC 6.9 RBC 4.09 Hgb 13.0 Hct 37.9 MCV 92.7 MCH 31.7 MCHC 34.2 RDW 12.9 Plt Count 161 MPV 9.3 Neut % (Auto) 65.8 Lymph % (Auto) 21.7 [place] % (Auto) 11.0 H Eos % (Auto) 1.3 Baso % (Auto) 0.2 Neut # (Auto) 4.6 Lymph # (Auto) 1.5 [place] # (Auto) 0.8 Eos # (Auto) 0.1 Baso # (Auto) 0.0 WBC Differential . Differential Comment Auto diff final Sodium 144 Potassium 3.7 Chloride 110 H Carbon Dioxide 26.2 Anion Gap 8 BUN 13 Creatinine 0.79 Estimated GFR 71 L Random Glucose 93 Calcium 8.5 Total Bilirubin 0.6 AST 28 ALT 24 Alkaline Phosphatase 57 Total Protein 6.9 Albumin 3.5 - Imaging Impressions Ankle X-Ray 01/10/18 00:00 CONCLUSION: Bimalleolar fixation as above. Head CT 01/10/18 00:00 CONCLUSION: 1. Negative CT Head non contrast. . - Procedures Open reduction internal fixation of right tibia-fibula on 01/10/18 Assessment and Plan - Assessment and Plan 77yo F s/p 2 mechanical trip and falls with closed minimally displaced right proximal humerus fracture and closed displaced right bimalleolar ankle fracture , postop day 1 status post ORIF right ankle fracture 1. Nonweightbearing right lower extremity in splint. Nonweightbearing right upper extremity in sling 2. Physical therapy for mobilization. 3. Lovenox for DVT prophylaxis while inpatient. May switch to Xarelto upon discharge. 4. Patient may follow-up in my office approximately 2 weeks. Patient will likely require placement.
[2018-01-11] MEDS: Atenolol 50 MG Tablet PO SCH (08:23)
[2018-01-11] MEDS: Senna/Docusate Sodium 8.6/50 MG Tablet PO SCH ×2 (08:23→22:08)
[2018-01-11 13:35] VITALS: RESP 18
--- NOTE | 2018-01-11 13:42 | P.PN ---
Subjective Interval history: Follow up for right humerus fracture, right bimalleolar ankle fracture s/p ORIF , hypothyroidism. The patient reports her pain is fairly well controlled with pain medications. Denies any distal paresthesias or weakness. She denies any lightheadedness, chest pain, shortness of breath, or abdominal complaints. She is looking forward to hopefully going to rehab. Physical Exam Vital signs: Vital Signs 01/10/18 16:00 01/10/18 20:00 01/11/18 00:00 Temperature 98.6 F 100.3 F H 98.3 F Pulse Rate 85 90 88 Respiratory Rate 18 Blood Pressure 138/60 143/63 H 118/58 L Pulse Oximetry 98 98 97 01/11/18 04:00 01/11/18 08:00 01/11/18 12:00 Temperature 97.1 F L 97.3 F L 99.3 F Pulse Rate 79 85 78 Respiratory Rate 18 16 18 Blood Pressure 129/59 L 117/57 L 144/60 H Pulse Oximetry 97 96 96 Intake & Output 01/10/18 01/11/18 01/11/18 18:59 06:59 18:59 Intake Total 2240 / 2240 2290 / 2290 Output Total 330 / 330 Balance 1910 / 1910 2290 / 2290 Weight 79.5 kg Intake: IV 1100 / 1100 2049 / 2049 NS Inj 1,000 ML @ 100 mls/hr IV 1000 / 1000 1999 / 1999 .CONT .Q10H [facility] Rx#:[id number] Ancef 1 GM Premix Inj 1 gm In 50 / 50 50 / 50 50 ml @ 100 mls/hr IV.SIG Q8H [facility] Rx#:[id number] Ancef 2 GM Premix Inj 2 gm In 50 / 50 50 ml @ 0 mls/hr IV.SIG .STK- [facility] Rx#:[id number] Oral 240 / 240 240 / 240 Anesthesia Amount 900 / 900 Output: Urine 300 / 300 Estimated Blood Loss 30 / 30 Other: # Voids 2 Date of Last Bowel Movement 01/09/18 Narrative: GENERAL: Well-nourished, well-developed very pleasant elderly female patient in [facility]. SKIN: Warm and dry. No rash. HEENT: Normocephalic. Atraumatic. Pupils equal and round. Mucous membranes pink and moist. CARDIOVASCULAR: Regular rate and rhythm. No murmur appreciated. RESPIRATORY: No accessory muscle use. Clear to auscultation. Breath sounds equal bilaterally. GASTROINTESTINAL: Abdomen soft, non-tender, nondistended. Normoactive bowel sounds x4. MUSCULOSKELETAL: RUE in sling with 5/5 hollock maker strength, 2+ radial pulse, and 5/5 hollock maker strength. RLE in surgical splint, elevated, distal toes sensation intact with brisk capillary refill. 5/5 strength LUE/LLE. NEUROLOGICAL: Awake and alert. No obvious cranial nerve deficits. Moving all extremities spontaneously. Normal speech. PSYCHIATRIC: Appropriate mood and affect; insight and judgment normal. Results - Labs CBC & Chem 7: 01/10/18 06:37 01/10/18 06:31 - Imaging Impressions Ankle X-Ray 01/10/18 00:00 CONCLUSION: Bimalleolar fixation as above. Head CT 01/10/18 00:00 CONCLUSION: 1. Negative CT Head non contrast. . - Procedures Open reduction internal fixation of right tibia-fibula on 01/10/[address] Catalan Assessment and Plan - Assessment (1) Fracture of humerus, proximal, right, closed Code(s): S42.201A - Unspecified fracture of upper end of right humerus, initial encounter for closed fracture Status: Acute (2) Fracture of ankle, right, closed Code(s): S82.891A - Other fracture of right lower leg, initial encounter for closed fracture Status: Acute - Plan 77-year-old female with a past medical history of hypertension, hypothyroidism was brought to the ED from CV[facility] where she has been spending time with her who is currently hospitalized, for evaluation of right upper and lower extremity pain status post mechanical falls x2. Acute Right Distal tibia and fibula fracture: s/p fall -Ortho consulted -Status post open reduction internal fixation on 01/[address] Catalan -NWB RLE -pain control with Tylenol and Maria Stein prn -PT recommending rehab -ortho recommending Lovenox for DVT prophylaxis during hospitalization, may switch to xarelto upon discharge -outpatient f/up with Dr. Ramos in 2 weeks Acute proximal right humerus fracture: secondary to fall -Consulted ortho, appreciate recommendations -conservative management at this time -Placed in a sling and nonweightbearing to the RUE -pain control as needed Hypothyroidism: chronic -Continue patient's home Synthroid Hypertension: chronic -Continue patient's home Atenolol -Monitor BP, adjust antihypertensives as needed DVT Prophylaxis: Lovenox sq Discharge Planning: Plan to discharge to rehab once arranged. Case management assisting with discharge planning. (1) Fracture of humerus, proximal, right, closed Qualifiers: Encounter type: initial encounter Fracture morphology: unspecified fracture morphology Qualified Code(s): S42.201A - Unspecified fracture of upper end of right humerus, initial encounter for closed fracture (2) Fracture of ankle, right, closed Qualifiers: Encounter type: initial encounter Qualified Code(s): S82.891A - Other fracture of right lower leg, initial encounter for closed fracture
[2018-01-11] MEDS: Vitamin B Complex/Vit C/Folic Tablet PO SCH (16:36)
[2018-01-11] MEDS: Duloxetine 60 MG DR Capsule PO SCH (16:36)
[2018-01-12] MEDS: Sod Chloride 0.9% Inj 1,000 ML IV.CONT SCH ×2 (05:47→16:07)
[2018-01-12] MEDS: Levothyroxine 75 MCG Tablet PO SCH (05:47)
[2018-01-12] MEDS: Duloxetine 60 MG DR Capsule PO SCH (09:08)
[2018-01-12] MEDS: Vitamin B Complex/Vit C/Folic Tablet PO SCH (09:08)
[2018-01-12] MEDS: Senna/Docusate Sodium 8.6/50 MG Tablet PO SCH (09:08)
--- NOTE | 2018-01-12 10:34 | P.PNOP ---
Subjective Interval history: Resting comfortably. states her pain is relatively well controlled Physical Exam Vital signs: Vital Signs 01/11/18 12:00 01/11/18 16:00 01/11/18 21:35 Temperature 99.3 F 98.3 F 98.8 F Pulse Rate 78 80 78 Respiratory Rate Blood Pressure 144/60 H 126/62 116/52 L Pulse Oximetry 96 98 01/11/18 23:55 01/12/18 05:35 01/12/18 08:00 Temperature 99.2 F 98.4 F 97.9 F Pulse Rate 79 75 88 Respiratory Rate 18 Blood Pressure 116/78 113/59 L 125/60 Pulse Oximetry 94 L 95 97 Intake & Output 01/11/18 01/12/18 01/12/18 18:59 06:59 18:59 Intake Total 600 / 600 480 / 480 Balance 600 / 600 480 / 480 Weight 75.5 kg Intake: Oral 600 / 600 480 / 480 Other: # Voids 2 1 Date of Last Bowel Movement 01/09/18 01/09/18 01/09/18 Narrative: Awake, alert RUE: ice pack over proximal humerus. NVI distally RLE: splint in place. Wiggles toes. BCR Results - Labs CBC & Chem 7: 01/10/18 06:37 01/10/18 06:31 - Procedures Open reduction internal fixation of right tibia-fibula on 01/10/[address] Catalan Assessment and Plan - Assessment and Plan 77yo F s/p 2 mechanical trip and falls with closed minimally displaced right proximal humerus fracture and closed displaced right bimalleolar ankle fracture , POD#2 status post ORIF right ankle fracture 1. Nonweightbearing right lower extremity in splint. Nonweightbearing right upper extremity in sling 2. Physical therapy for mobilization. 3. Lovenox for DVT prophylaxis while inpatient. May switch to Xarelto upon discharge. 4. Patient may follow-up in my office approximately 2 weeks. Patient will likely require placement.
--- NOTE | 2018-01-12 13:55 | P.DS ---
Date of admission: 01/09/18 12:35 Primary care physician: Kam Jacobs MD Attending physician on discharge: Antwan Haider Anticipated date of discharge: 01/12/18 Brief History from admission: 77-year-old female with a past medical history of hypertension, hypothyroidism was brought to the ED from CVICU where she has been spending time with her who is currently hospitalized, for evaluation of right upper and lower extremity pain status post mechanical falls x2. Apparently this morning, patient went to the gas bathroom however she got inside she slipped and fell landing on her right elbow/shoulder and immediately feeling a pop. Patient managed to get up but few instance later she slept and landing on her right ankle and foot. She was unable to get up this time until she was found by some employees of [employer]. Patient denies in both instances loss of consciousness, heart palpitation or dizziness. She denies any presyncopal episode. In the ED , x-rays were obtained which revealed fracture to the right humerus, fracture to distal tibia and fibula. Patient had extensive pain of lower and upper extremity pain. She has a loop recorder in place, since July 2016. Patient update on day of discharge: Follow up for right humerus fracture, right bimalleolar ankle fracture s/p ORIF. The patient reports feeling fairly well again today. Pain is controlled with norco. She is looking forward to going to rehab. She denies any fevers/ chills, chest pain, shortness of breath, or abdominal complaints. Vital signs reviewed and stable. DS: Diagnosis - Discharge Diagnosis (1) Fracture of humerus, proximal, right, closed Status: Acute (2) Fracture of ankle, right, closed Status: Acute DS: Summary Hospital Course: 77-year-old female with a past medical history of hypertension, hypothyroidism was brought to the ED from CVICU where she has been spending time with her who is currently hospitalized, for evaluation of right upper and lower extremity pain status post mechanical falls x2. Acute Right Distal tibia and fibula fracture: s/p fall. Ortho consulted, Status post open reduction internal fixation on 01/[address] Catalan. NWB RLE per ortho. Pain well controlled with Tylenol and Rippey prn. PT recommending rehab. Ortho recommending Lovenox for DVT prophylaxis during hospitalization, may switch to xarelto upon discharge. Outpatient f/up with Dr. Ramos in 2 weeks. Patient being discharged to [facility]. Acute proximal right humerus fracture: secondary to fall as above. Consulted ortho, conservative management at this time. Placed in a sling and nonweightbearing to the RUE per ortho. Outpatient f/up. Hypothyroidism: chronic. Continued patient's home Synthroid Hypertension: chronic. Continued patient's home Atenolol. BP well controlled. DVT Prophylaxis: Lovenox sq per ortho recommendations - Time Spent with Patient Total time spent providing and/or coordinating discharge services: Greater than 30 minutes - Quality: VTE Deep Vein Thrombosis/Pulmonary Embolism Present on Admission: No Exam Vital signs: Vital Signs 01/11/18 16:00 01/11/18 21:35 01/11/18 23:55 Temperature 98.3 F 98.8 F 99.2 F Pulse Rate 80 78 79 Respiratory Rate 18 Blood Pressure 126/62 116/52 L 116/78 Pulse Oximetry 98 94 L 01/12/18 05:35 01/12/18 08:00 01/12/18 12:00 Temperature 98.4 F 97.9 F 98.0 F Pulse Rate 75 88 77 Respiratory Rate 18 18 Blood Pressure 113/59 L 125/60 122/60 Pulse Oximetry 95 97 96 Intake & Output 01/11/18 01/12/18 01/12/18 18:59 06:59 18:59 Intake Total 600 / 600 480 / 480 Balance 600 / 600 480 / 480 Weight 75.5 kg Intake: Oral 600 / 600 480 / 480 Other: # Voids 2 1 Date of Last Bowel Movement 01/09/18 01/09/18 01/09/18 Narrative: GENERAL: Well-nourished, well-developed very pleasant elderly female patient in [facility]. SKIN: Warm and dry. No rash. HEENT: Normocephalic. Atraumatic. Pupils equal and round. Mucous membranes pink and moist. CARDIOVASCULAR: Regular rate and rhythm. No murmur appreciated. RESPIRATORY: No accessory muscle use. Clear to auscultation. Breath sounds equal bilaterally. GASTROINTESTINAL: Abdomen soft, non-tender, nondistended. Normoactive bowel sounds x4. MUSCULOSKELETAL: RUE in sling with 5/5 wastewater [employer] chemist strength, 2+ radial pulse. RLE in surgical splint, elevated, distal toes sensation intact with brisk capillary refill. 5/5 strength LUE/LLE. NEUROLOGICAL: Awake and alert. No obvious cranial nerve deficits. Moving all extremities spontaneously. Normal speech. PSYCHIATRIC: Appropriate mood and affect; insight and judgment normal. Results Procedures completed during hospitalization: Open reduction internal fixation of right tibia-fibula on 01/10/[address] Catalan - Impressions ITS Impressions Humerus X-Ray 01/09/18 08:09 CONCLUSION: Proximal humerus fracture. Chest X-Ray 01/09/18 10:59 CONCLUSION: Clear lungs. Comminuted right proximal humerus fracture. Ankle X-Ray 01/10/18 00:00 CONCLUSION: Bimalleolar fixation as above. Head CT 01/10/18 00:00 CONCLUSION: 1. Negative CT Head non contrast. . Discharge Plan - Discharge Disposition Patient Disposition: 62 Rehab Inpatient - Discharge Condition Condition: Stable - Discharge Order Discharge Orders: Discharge Order (Routine); Ordered 01/12/18 Ordered By: Janae Taylor Orthopedic Clear for Discharge (Routine); Ordered 01/12/18 Ordered By: Lilli Catalan - Discharge Details Anticipated Discharge Date: 01/12/18 - Physicians Team Primary Care Provider: Kam Jacobs Attending Provider: Antwan Haider
[2018-01-12] MEDS: Atenolol 50 MG Tablet PO SCH (16:07)
[2018-01-12 17:24] VITALS: BP 124/62; PULSE 78; TEMP 98.1; O2SAT 97
== END 2018-01-12 16:31 ==
LOC: NEPE 07:37 → NEDH 12:35 → N06 13:44
PROVIDERS: ADMIT Internal Medicine; ATTEND Internal Medicine
PROC: ORIFANK (2018-01-10 09:08)